=== PATIENT | male | born 1990 | race American Indian/Alaskan Native ===

== ENCOUNTER 2023-04-13 18:39 | Emergency (ER) | payer OTHER ==
[~2023-04-13] VITALS: Ht 177.8 cm; Wt 72.6 kg
[2023-04-14 07:03] VITALS: BP 138/76
--- NOTE | 2023-04-14 21:40 | EKG ---
[facility] [address] [facility] [place] [address] Signed Normal sinus rhythm with sinus arrhythmia Prolonged QT Abnormal ECG No previous ECGs available Confirmed by Beatris Jha MD () on 04/14/2023 9:40:35 PM Electronically Signed By: BEATRIS JHA MD 04/14/232139 PATIENT NAME: LANNY GONZALES Electrocardiogram DATE OF : [birth year] PHYSICIAN: BEATRIS JHA MD REPORT #: [id number] REPORT IS CONFIDENTIAL AND NOT TO BE RELEASED WITHOUT AUTHORIZATION
== END 2023-04-14 07:20 | disposition home or self-care (01) ==
LOC: ED 18:39
DX: T40.2X1A Poisoning by other opioids, accidental (unintentional), initial encounter (principal); T40.5X1A Poisoning by cocaine, accidental (unintentional), initial encounter; T43.641A Poisoning by ecstasy, accidental (unintentional), initial encounter; T43.651A Poisoning by methamphetamines accidental (unintentional), initial encounter; R40.4 Transient alteration of awareness
CPT/HCPCS: 36415; 51701; 80053; 81003; 82553; 84443; 85025; 93005; 93010; 99285-25; G0480; J1630; J2060; J7030